=== PATIENT | male | born 1965 | race Caucasian/White ===

== ENCOUNTER 2017-07-07 13:23 | Emergency (ER) | payer OTHER ==
[2017-07-07 13:38] VITALS: O2SAT 91
[2017-07-07] MEDS ORDERED: IPRATROPIUM/ALBUTEROL 3 ML DEYVIAL IH ONE (13:45)
--- NOTE | 2017-07-07 13:49 | EDPHY ---
H & P Time Seen by Provider: 07/07/17 13:45 HPI/ROS: CHIEF COMPLAINT: Cough, shortness of breath HISTORY OF PRESENT ILLNESS: Patient is a 51-year-old male who presents emergency department complaining of cough and shortness of breath. Patient thinks his symptoms started on Saturday. He was driving in his car from [place] when he was eating Skittles. He is not sure if he swallowed the juice of the schedule an actual schedule but he felt as though went to his lung. He had a coughing fit for about 5 min. It then resolved. However, over the next couple of days he developed persistent cough. He feels as though he has increasing shortness of breath. He has noticed a very subtle wheeze. He also feels as though he has become more horse. The he denies feeling sick and states he recently got over a URI. He has had no fevers or chills. No leg pain or swelling. No history of DVT or clot. REVIEW OF SYSTEMS: My complete review of systems is negative except as mentioned in the HPI. Past Medical/Surgical History: Includes GERD Past surgical history: Includes orthopedic surgery Social history: The patient does not smoke. Family history: No history of DVT or PE. Smoking Status: Never smoked Physical Exam: 36.9, 158/88, 84, 20, 91% on room air GENERAL: Well-appearing, in no acute distress, alert. HEENT: Eyes normal to inspection, normal pharynx, no signs of dehydration. NECK: [No thyromegaly, no lymphadenopathy, supple. RESPIRATORY: Slight wheeze in the right lower lung. No rales or rhonchi. No accessory muscle use. The patient does have an episode of coughing when asked to take a deep breath. CVS: Regular rate and rhythm, no rubs, murmurs, or gallops. ABDOMEN: Soft, nontender, nondistended, no organomegaly. BACK: Normal to inspection, no CVA tenderness. SKIN: Normal color, no rash, warm, dry. No pallor. EXTREMITIES: No pedal edema, no calf tenderness, no Homans sign or cords, no joint swelling. NEURO/PSYCH: Alert and oriented x3, normal mood and affect, normal motor sensory exam. Constitutional: Initial Vital Signs Temperature (C) 36.9 C 07/07/17 13:36 Heart Rate 84 07/07/17 13:36 Respiratory Rate 20 07/07/17 13:36 Blood Pressure 158/88 H 07/07/17 13:36 O2 Sat (%) 91 L 07/07/17 13:36 O2 Delivery Mode Room Air Allergies/Adverse Reactions: amoxicillin [From Augmentin] Allergy (Verified 07/07/17 13:35) clavulanic acid [From Augmentin] Allergy (Verified 07/07/17 13:35) Home Medications: Medication Instructions Recorded Levothyroxine 07/07/17 Prilosec 07/07/17 predniSONE 20 mg PO DAILY 4 Days tab 07/07/17 Medical Decision Making - Diagnostics Imaging Results: Imaging Impressions Chest X-Ray 07/07/17 13:45 Impression: Minimal airways disease. No evidence of aspiration. Comment: Case was discussed with Dr. Shanelle Estrada. ED Course/Re-evaluation: In the emergency department I discussed possible etiologies with the patient. I answered all his questions. An IV was placed. Laboratory studies, EKG and chest x-ray were obtained. Because the patient had slight wheezing on exam he was given a DuoNeb. I rechecked the patient after the DuoNeb. He felt no difference. He still had slight wheeze in the right lower lung. No signs respiratory distress. EKG shows normal sinus rhythm, normal rate, normal axis, normal intervals. There are no ST or T-wave abnormalities. EKG is normal as interpreted by me. Patient's CBC and chemistry unremarkable. D-dimer was negative. Troponin was negative. Chest x-ray: Please refer the dictated report by Dr. Boone. I personally reviewed the images and discussed the case with Dr. Boone. No visible foreign body or abnormality. 1430: I discussed the results with the patient. I answered all his questions. I paged pulmonology, Dr. Calle. 1445: I called the ICU at [facility] to see if the pulmonogy was present to help arrange follow up. No attending available. Still awaiting callback. 1500: I discussed the case with Dr. Newton Calle. He will arrange follow-up with the patient. He feels comfortable hiking patient started on steroids and follow up with his office. I discussed the plan with the patient. I answered all his questions. He is given warnings at the time of discharge. Differential Diagnosis: My differential includes but is not limited to bronchitis, URI, influenza, pneumonia, foreign body, reactive airway disease, GERD, PE - Data Points Laboratory Results: Laboratory Results 07/07/17 13:55 07/07/17 13:55 07/07/1718 07/07/17 13:55 13:55 13:55 WBC 6.50 10^3/uL 10^3/uL (3.80-9.50) RBC 5.69 10^6/uL 10^6/uL (4.40-6.38) Hgb 16.8 g/dL g/dL (13.7-17.5) Hct 48.3 % % (40.0-51.0) MCV 84.9 fL fL (81.5-99.8) MCH 29.5 pg pg (27.9-34.1) MCHC 34.8 g/dL g/dL (32.4-36.7) RDW 13.2 % % (11.5-15.2) Plt Count 163 10^3/uL 10^3/uL (150-400) MPV 10.1 fL fL (8.7-11.7) Neut % (Auto) 58.9 % % (39.3-74.2) Lymph % (Auto) 26.0 % % (15.0-45.0) Dawson % (Auto) 11.5 % % (4.5-13.0) Eos % (Auto) 2.8 % % (0.6-7.6) Baso % (Auto) 0.5 % % (0.3-1.7) Nucleat RBC Rel Count 0.0 % % (0.0-0.2) Absolute Neuts (auto) 3.83 10^3/uL 10^3/uL (1.70-6.50) Absolute Lymphs (auto) 1.69 10^3/uL 10^3/uL (1.00-3.00) Absolute Monos (auto) 0.75 10^3/uL 10^3/uL (0.30-0.80) Absolute Eos (auto) 0.18 10^3/uL 10^3/uL (0.03-0.40) Absolute Basos (auto) 0.03 10^3/uL 10^3/uL (0.02-0.10) Absolute Nucleated RBC 0.00 10^3/uL 10^3/uL (0-0.01) Immature Gran % 0.3 % % (0.0-1.1) Immature Gran # 0.02 10^3/uL 10^3/uL (0.00-0.10) D-Dimer < 0.27 ug/mLFEU ug/mLFEU (0.00-0.50) Sodium 141 mEq/L mEq/L (135-145) Potassium 4.5 mEq/L mEq/L (3.5-5.2) Chloride 107 mEq/L mEq/L (97-110) Carbon Dioxide 25 mEq/l mEq/l (22-31) Anion Gap 9 mEq/L mEq/L (8-16) BUN 13 mg/dL mg/dL (7-23) Creatinine 1.3 mg/dL mg/dL (0.7-1.3) Estimated GFR 58 Glucose 95 mg/dL mg/dL (70-100) Calcium 9.2 mg/dL mg/dL (8.5-10.4) Troponin I < 0.012 ng/mL ng/mL (0.000-0.034) Medications Given: Discontinued Medications Albuterol/Ipratropium (Duoneb) 3 ml IH EDNOW ONE Stop: 07/07/17 13:46 Last Admin: 07/07/17 13:53 Dose: 3 ml Departure - Departure Disposition: Home, Routine, Self-Care Clinical Impression: Shortness of breath Condition: Good Instructions: Dyspnea (ED) Additional Instructions: Return with increasing shortness of breath, fever, chest pain, or any other concerns. You need close follow-up with pulmonology. Referrals: Newton Calle MD [Medical Doctor] - 1-2 days without fail Prescriptions: predniSONE 20 mg PO DAILY 4 Days tab
--- NOTE | 2017-07-07 13:52 | CPEKG ---
Heart Rate: 84 RR Interval: 714 P-R Interval: 176 QRSD Interval: 90 QT Interval: 356 QTC Interval: 421 P [place]: 10 QRS [place]: 12 T Wave [place]: 6 EKG Severity - NORMAL ECG - EKG Impression: SINUS RHYTHM Electronically Signed By: Bean Reilly 09-Jul-2017 08:48:26
[2017-07-07 14:04] LABS: PLATELET COUNT 163 10^3/uL (150-400)
[2017-07-07 14:31] VITALS: BP 145/62; PULSE 85
[2017-07-07] MEDS ORDERED: predniSONE 20 MG TAB PO ONE (14:55)
[2017-07-07 15:10] VITALS: RESP 18; TEMP 99
== END 2017-07-07 15:09 | disposition home or self-care (01) ==
LOC: CED 13:23
DX: R06.02 Shortness of breath (principal)
CPT/HCPCS: 71046-PO; 80048-PO; 84484-PO; 85025-PO; 85378-PO; J7512